=== PATIENT | female | born 1990 | race American Indian/Alaskan Native ===

== ENCOUNTER 2017-12-15 22:33 | Emergency (ER) | payer OTHER ==
[2017-12-16] MEDS ORDERED: Clindamycin HCl 150 MG Cap PO ONE (00:24)
[2017-12-16] MEDS ORDERED: Acetaminophen/HYDROcodone 325-10 MG Tab PO ONE (00:24)
--- NOTE | 2017-12-16 00:29 | EDM.PDOC ---
ED HPI GENERAL MEDICAL PROBLEM - General Chief Complaint: ENT Problem Stated Complaint: [id number] BAD TOOTHACHE Time Seen by Provider: 12/16/17 00:26 Source of Information: Reports: Patient History Limitations: Reports: No Limitations - History of Present Illness INITIAL COMMENTS - FREE TEXT/NARRATIVE: c/o worsening tooth ache past few days. 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 Psychiatric History: Reports: Addiction Hematologic History: Reports: Anemia, Blood Transfusion(s) Social & Family History - Family History Family Medical History: Noncontributory Cardiac: Reports: CAD Respiratory: Reports: Asthma, COPD GI: Reports: Cholelithiasis : Reports: Dialysis, Renal Disease/Insufficiency Musculoskeletal: Reports: Arthritis, Back pain, Chronic, Gout Neurological: Reports: CVA Psychiatric: Reports: Anxiety, Depression, Other (See Below) Endocrine/Metabolic: Reports: Diabetes, type II, Obesity/MBI 30+ - Tobacco Use Smoking Status *Q: Current Every Day Smoker Years of Tobacco use: 4 Packs/Tins Daily: 0.1 Used Tobacco, but Quit: No Second Hand Smoke Exposure: Yes - Caffeine Use Caffeine Use: Reports: Energy Drinks, Soda - Alcohol Use Days Per Week of Alcohol Use: 0 - Recreational Drug Use Recreational Drug Use: No Drug Use in Last 12 Months: Yes Recreational Drug Type: Reports: Methamphetamine Recreational Drug Use Frequency: Daily - Sexual History Sexual History: Reports: Sexually Active - Living Situation & Occupation Living situation: Reports: with Significant Other Occupation: Unemployed ED ROS ENT - Review of Systems Review Of Systems: ROS reveals no pertinent complaints other than HPI. ED EXAM, ENT - Physical Exam Exam: See Below Exam Limited By: No Limitations General Appearance: Alert, WD/WN, Mild Distress, Moderate Distress, Other ( crying) Mouth/Throat: Dental Abcess, Dental Pain, Dental Tenderness, Other (extensive dental decay & caries) Head: Atraumatic Neck: Non-Tender, Full Range of Motion Respiratory/Chest: No Respiratory Distress Cardiovascular: Regular Rate, Rhythm Neurological: Alert, Oriented, Normal Cognition, Normal Gait, No Motor/Sensory Deficits Psychiatric: Tearful Skin: Warm, Dry, Normal Color Lymphatic: No Adenopathy Course - Vital Signs Last Recorded V/S: Last Vital Signs Temp 36.6 C 12/15/17 22:56 Pulse 84 12/15/17 22:56 Resp 18 12/15/17 22:56 BP 142/60 H 12/15/17 22:56 Pulse Ox 100 12/15/17 22:56 - Orders/Labs/Meds Meds: Medications Discontinued Medications Generic Name Dose Route Start Last Admin Trade Name Freq PRN Reason Stop Dose Admin Hydrocodone Bitart/Acetaminophen 1 tab 12/16/17 00:24 [place] 325-10 Mg PO 12/16/17 00:25 ONETIME ONE Clindamycin HCl 150 mg 12/16/17 00:24 Cleocin PO 12/16/17 00:25 ONETIME ONE Departure - Departure Time of Disposition: 00:27 Disposition: Home, Self-Care 01 Condition: Good Clinical Impression: Dental abscess, Dental caries - Discharge Information Instructions: Dental Abscess, [id number] Additional Instructions: 1) see DENTIST TOMORROW rx given; clindamycin 150mg qid x 40 vicodin 5/325mg bid prn x 6
[2017-12-16 00:43] VITALS: BP 128/78
== END 2017-12-16 00:45 | disposition home or self-care (01) ==
LOC: DL.ED 22:33
DX: K04.7 Periapical abscess without sinus (principal); K02.9 Dental caries, unspecified; F17.210 Nicotine dependence, cigarettes, uncomplicated
CPT/HCPCS: 99283; A9270

== ENCOUNTER 2020-02-21 14:51 | Emergency (ER) | payer OTHER ==
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
[2020-02-21] MEDS ORDERED: Sodium Chloride 0.9% 10 ML Syringe FLUSH PRN (15:03)
[2020-02-21] MEDS ORDERED: Lactated Ringers 1,000 ML IV ONE (15:05)
[2020-02-21] MEDS ORDERED: fentaNYL 100 MCG/2 ML SDV IVPUSH ONE (15:05)
[2020-02-21] MEDS ORDERED: Ondansetron 4 MG/2 ML SDV IV ONE (15:05)
[2020-02-21 15:14] VITALS: BP 82/56; PULSE 98
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
[2020-02-21 15:26] LABS: ANION GAP 12.7 mEq/L (7-13); CHLORIDE,CL 105 mmol/L (98-107); SODIUM,NA 140 mmol/L (136-145)
[2020-02-21] MEDS: Diphtheria,Pertussis(Acell),Tetanus Vaccine 0.5 ML SDV IM ONE ×2 (15:26→15:29)
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
[2020-02-21 15:36] LABS: PTT,PARTIAL THROMBOPLSTIN TIME 22.5 SEC (22.0-34.0)
== END 2020-02-21 16:35 | disposition home or self-care (01) ==
LOC: DL.ED 14:51
DX: S06.0X0A Concussion without loss of consciousness, initial encounter (principal); S50.12XA Contusion of left forearm, initial encounter; S30.0XXA Contusion of lower back and pelvis, initial encounter; F15.10 Other stimulant abuse, uncomplicated; E66.9 Obesity, unspecified; K02.9 Dental caries, unspecified; E11.9 Type 2 diabetes mellitus without complications; Z86.73 Personal history of transient ischemic attack (TIA), and cerebral infarction without residual deficits; V87.8XXA Person injured in other specified noncollision transport accidents involving motor vehicle (traffic), initial encounter
CPT/HCPCS: 36415; 70450; 71045; 72125; 72170; 73080; 80053; 80305; 80307; 81001; 81025; 82150; 83690; 85025; 85610; 85730; 87086; 96361; 96374; 96375; 99284; J2405; J3010; J7120; 90715; 99283

== ENCOUNTER 2021-04-27 14:12 | Emergency (ER) | payer MEDICAID, OTHER ==
--- NOTE | 2021-04-27 14:34 | EDM.PDOC ---
ED HPI GENERAL MEDICAL PROBLEM - General Chief Complaint: ENT Problem Stated Complaint: EAR ACHE Time Seen by Provider: 04/27/21 14:33 Source of Information: Reports: Patient, Old Records, RN, RN Notes Reviewed History Limitations: Reports: No Limitations - History of Present Illness INITIAL COMMENTS - FREE TEXT/NARRATIVE: Pt presents to ER with c/o left ear pain x2 days, and pain in the left upper gums. Denies drainage, fever, chills, or cough. Pt states she is and due next month. She report active movement. Denies vaginal bleeding, leak or fluids, or discharge, or contractions. Onset: Gradual Duration: Getting Worse Location: Reports: Face Quality: Reports: Ache Severity: Moderate Improves with: Reports: None Worsens with: Reports: Eating Associated Symptoms: Reports: No Other Symptoms - Related Data Allergies Allergy/AdvReac Type Severity Reaction Status Date / Time No Known Allergies Allergy Verified 12/15/17 23:01 Home Meds: Home Meds . 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 Psychiatric History: Reports: Addiction Hematologic History: Reports: Anemia, Blood Transfusion(s) Social & Family History - Family History Family Medical History: No Pertinent Family History Cardiac: Reports: CAD Respiratory: Reports: Asthma, COPD GI: Reports: Cholelithiasis : Reports: Dialysis, Renal Disease/Insufficiency Musculoskeletal: Reports: Arthritis, Back pain, Chronic, Gout Neurological: Reports: CVA Psychiatric: Reports: Anxiety, Depression, Other (See Below) Endocrine/Metabolic: Reports: Diabetes, type II, Obesity/MBI 30+ - Caffeine Use Caffeine Use: Reports: Energy Drinks, Soda - Sexual History Sexual History: Reports: Sexually Active - Living Situation & Occupation Living situation: Reports: with Significant Other Occupation: Unemployed ED ROS ENT - Review of Systems Review Of Systems: Comprehensive ROS is negative, except as noted in HPI. ED EXAM, ENT - Physical Exam Exam: See Below Exam Limited By: No Limitations General Appearance: Alert, WD/WN, No Apparent Distress Eye Exam: Bilateral Eye: Normal Inspection Ears: TM Bulging (Left), TM Dullness (Left), TM Erythema (Left) Nose: Normal Inspection Mouth/Throat: Dental Abcess (Left upper molar region), Dental Pain Head: Atraumatic, Normocephalic Neck: Normal Inspection, Supple, Non-Tender, Full Range of Motion. No: Lymphadenopathy (L), Lymphadenopathy (R) Respiratory/Chest: No Respiratory Distress, Lungs Clear Cardiovascular: Regular Rate, Rhythm GI/Abdominal: Normal Bowel Sounds, Soft, Other (Gravid consist with 3rd Trim. with active motion) Back: Normal Inspection Neurological: Alert, Oriented, No Motor/Sensory Deficits Psychiatric: Normal Affect, Normal Mood Skin: Warm, Dry, Intact, Normal Color, No Rash Course - Orders/Labs/Meds Meds: Medications Discontinued Medications Generic Name Dose Route Start Last Admin Trade Name Freq PRN Reason Stop Dose Admin Clindamycin HCl 300 mg 04/27/21 14:44 Clindamycin Hcl 150 Mg Cap PO 04/27/21 14:45 ONETIME ONE Lidocaine HCl 15 ml 04/27/21 14:45 Lidocaine 2% Viscous Solution 15 Ml Cup PO 04/27/21 14:46 ONETIME ONE Departure - Departure Time of Disposition: 14:47 Disposition: Home, Self-Care 01 Condition: Good Clinical Impression: Dental abscess Otitis media Qualifiers: Otitis media type: suppurative Chronicity: acute Laterality: left Recurrence: non-recurrent Spontaneous tympanic membrane rupture: without spontaneous rupture Qualified Code(s): H66.002 - Acute suppurative otitis media without spontaneous rupture of ear drum, left ear - Discharge Information *PRESCRIPTION DRUG MONITORING PROGRAM REVIEWED*: Not Applicable *COPY OF PRESCRIPTION DRUG MONITORING REPORT IN PATIENT LUIS: Not Applicable Instructions: Dental Abscess, [id number]-[id number], Otitis Media, Adult, [id number] Forms: ED Department Discharge Additional Instructions: Rx: Clindamycin 300mg Rx: Viscous Lidocaine 2% Follow up in clinic in 3 to 5 days for recheck.
[2021-04-27] MEDS ORDERED: Clindamycin HCl 150 MG Cap PO ONE (14:44)
[2021-04-27] MEDS ORDERED: Lidocaine 2% Viscous Solution 15 ML Cup PO ONE (14:45)
== END 2021-04-27 15:10 | disposition home or self-care (01) ==
LOC: DL.ED 14:12
DX: O99.613 Diseases of the digestive system complicating pregnancy, third trimester (principal); O99.891 Other specified diseases and conditions complicating pregnancy; K04.7 Periapical abscess without sinus; H66.002 Acute suppurative otitis media without spontaneous rupture of ear drum, left ear; Z3A.00 Weeks of gestation of pregnancy not specified
CPT/HCPCS: 99282; 99283; A9270-GY

== ENCOUNTER 2021-05-31 12:09 | Inpatient (IN) | payer MEDICAID ==
[~2021-05-31 12:09] MED LIST: Ketorolac 30 MG/ML SDV IVPUSH ONE; Morphine PF 10 MG/10 ML SDV ONE; fentaNYL 100 MCG/2 ML SDV IV ONE
[2021-05-31] MEDS ORDERED: Famotidine 20 MG/2 ML SDV IVPUSH PRN (12:38)
[2021-05-31] MEDS ORDERED: Ondansetron 4 MG/2 ML SDV IVPUSH PRN (12:38)
[2021-05-31] MEDS ORDERED: Acetaminophen 325 MG Tab PO PRN (12:38)
[2021-05-31] MEDS ORDERED: Tranexamic Acid 1,000 MG in Sodium Chloride 0.9% 100 ML IV PRN (12:38)
[2021-05-31] MEDS ORDERED: Azithromycin 250 MG Tab PO ONE (13:00)
[2021-05-31 13:23] LABS: AMPHETAMINES,URINE NEGATIVE (NEGATIVE); BARBITURATES,URINE NEGATIVE (NEGATIVE); BENZODIAZEPINE,URINE NEGATIVE (NEGATIVE); MDMA (ECSTASY), URINE NEGATIVE (NEGATIVE); METHADONE,URINE NEGATIVE (NEGATIVE); METHAMPHETAMINES,URINE NEGATIVE (NEGATIVE); OPIATES,URINE NEGATIVE (NEGATIVE); OXYCODONE,URINE NEGATIVE (NEGATIVE); PHENCYCLIDINE,URINE NEGATIVE (NEGATIVE); TCA,URINE NEGATIVE (NEGATIVE)
[2021-06-01] MEDS ORDERED: ceFAZolin 2 GM in Premix Bag 1 BAG IV ONE (06:36)
[2021-06-01] MEDS ORDERED: Citric Acid/Sodium Citrate Solution 30 ML Cup PO ONE (06:36)
[2021-06-01] MEDS ORDERED: Measles, Mumps & Rubella Vaccine 0.5 ML SDV SUBCUT ONE (06:37)
[2021-06-01] MEDS ORDERED: ePHEDrine 50 MG/ML SDV IVPUSH PRN (06:37)
[2021-06-01] MEDS ORDERED: Misoprostol 400 MCG (4 X 100 MCG TAB) RECTAL PRN (06:37)
[2021-06-01] MEDS ORDERED: diphenhydrAMINE 50 MG/ML SDV IVPUSH PRN (06:37)
[2021-06-01] MEDS ORDERED: Acetaminophen/oxyCODONE 325-5 MG Tab PO PRN (06:37)
[2021-06-01] MEDS ORDERED: Carboprost Tromethamine 250 MCG/1 ML Amp IM PRN (06:37)
[2021-06-01] MEDS ORDERED: Methylergonovine 0.2 MG/1 ML Amp IM PRN (06:37)
[2021-06-01] MEDS ORDERED: Naloxone 2 MG/2 ML Syringe IVPUSH PRN (06:37)
[2021-06-01] MEDS ORDERED: Oxytocin/Normal Saline 30 UNIT/500 ML BAG IV SCH (06:45)
[2021-06-01] MEDS ORDERED: Ketorolac 30 MG/ML SDV IVPUSH SCH (06:45)
[2021-06-01] MEDS: Lactated Ringers 1,000 ML IV SCH ×4 (07:10→22:48)
[2021-06-01] MEDS ORDERED: Oxytocin/Normal Saline 60 UNIT/1,000 ML BAG ONE (07:22)
--- NOTE | 2021-06-01 10:53 | OBOUT ---
DATE: 06/01/2021 DATE AND TIME OF NST: 06/01/2021, 7:08 to 7:23. REASON FOR NST: 1. Intrauterine at 38 and 6/7 weeks by 26 and 5/7 weeks ultrasound. 2. Severe anemia, hemoglobin 7.8, now status post 2 units of packed red blood cells with hemoglobin coming up to 9.0 this morning. 3. High-risk . 4. High-risk social situation. 5. At-flight risk. 6. Abdominal pain, pubic bone region, suspect pubic symphysitis. 7. Positive urine drug screen for amphetamine on 05/18/2021, negative upon admission. 8. Positive chlamydia on 05/18/2021, treated yesterday when the patient presented for evaluation. 9. E. coli UTI in , treated. 10.Rubella nonimmune. 11.Hep C positive. 12.GBS negative. 13.Insufficient care. 14.History of x4, request repeat low transverse . 15.Positive COVID upon admission, asymptomatic. 16.G5, P4-0-0-4. NST INTERPRETATION: During this time period, heart tone baseline is approximately 130 and at least two 15 x 15 beats per minute accelerations making this strip reactive as well as reassuring. Tocometer reveals potential 1 contraction. ASSESSMENT: 1. Nonstress test, reactive and reassuring. 2. Tocometer with 1 contraction. PLAN: The patient was admitted last night, followed closely, received 2 units of packed red blood cells. Monitoring ensued. No concerns were noted. Positive COVID was noted yesterday upon admission and she is currently asymptomatic. Infection Control has been involved and we will continue following their recommendations. We will proceed to the OR as soon as crew is ready and available. This morning, Dr. Caro is available to help. Otherwise, we will continue to follow clinically and closely. Please see H and P which was done through YouTube on the day that she was admitted and printed and placed in the chart. [facility] /[id number]
--- NOTE | 2021-06-01 11:20 | OR ---
DATE: 06/01/2021 PREOPERATIVE DIAGNOSES: 1. Intrauterine at 38-6/7 weeks by 26-5/7-week ultrasound. 2. Severe anemia, hemoglobin 7.8 on 05/18/2021. Received 2 units of packed red blood cells on 05/31/2021 with hemoglobin coming up to 9.0 on 06/01/2021, date of service/surgery. 3. High-risk . 4. High-risk social situation. 5. At flight risk. 6. Abdominal pain in the pubic bone, suspect pubic symphysitis after monitoring. 7. Positive urine drug screen for amphetamine, 05/18/2021, negative upon admission. 8. Positive chlamydia 05/18/2021, treated 05/31/2021 when she presented to the hospital. 9. E coli urinary tract infection in the - treated. 10.Rubella nonimmune. 11.Hep C positive status. 12.Group B streptococcus negative. 13.Insufficient/late care. 14.History of x4, request repeat low transverse . 15.Positive COVID testing, asymptomatic on date of admission, 05/31/2021. 16.G5, P4-0-0-4. POSTOPERATIVE DIAGNOSES: 1. Intrauterine at 38-6/7 weeks by 26-5/7-week ultrasound - delivered. 2. Severe anemia, hemoglobin 7.8 on 05/18/2021. Received 2 units packed red blood cells on 05/31/2021 with hemoglobin coming up to 9.0 on 06/01/2021, date of service/surgery. 3. High-risk . 4. High-risk social situation. 5. At flight risk. 6. Abdominal pain in the pubic bone, suspect pubic symphysitis after monitoring. 7. Positive urine drug screen for amphetamine, 05/18/2021, negative upon admission. 8. Positive chlamydia 05/18/2021, treated 05/31/2021 when she presented to the hospital. 9. E coli urinary tract infection in the - treated. 10.Rubella nonimmune. 11.Hep C positive status. 12.Group B streptococcus negative. 13.Insufficient/late care. 14.History of x4, request repeat low transverse . 15.Positive COVID testing, asymptomatic on date of admission, 05/31/2021. 16.G5, P4-0-0-4. PROCEDURES PERFORMED: Nonstress test followed by repeat low transverse C- section on 06/01/2021. Procedure performed by Siva Trinidad MD. INVENTORY CONTROLLER: Douglas Caro MD and TERESA Mendoza. ANESTHESIA: Spinal. ESTIMATED BLOOD LOSS: 400 mL. IV FLUIDS: 1500 mL. URINE OUTPUT: 200 mL and clear. START: 8:22. UTERINE INCISION: 8:26. DELIVERY: 8:26. STOP: 8:45. FINDING: Male, score 8 and 9, weight pending. DESCRIPTION OF PROCEDURE IN DETAIL: After proper consent was obtained, the patient was brought to the operating room where spinal anesthetic was administered. Dudley was placed under preop under sterile condition. The abdomen was prepped and draped in normal sterile fashion with the patient placed in supine position with left lateral tilt. A skin incision was then made over the lower abdomen in transverse Pfannenstiel- type fashion. This was carried down the fascia and scored in the midline. Subcutaneous tissue raked by Hensley retraction and fascial incision was extended in transverse fashion using curved Stein's. Sana clamps x2 used to grasp the superior aspect of fascia and rectus muscles dissected from the fascia using sharp and blunt technique. In similar fashion, Sana clamps x2 used to grasp the inferior portion of the incision. Rectus and pyramidalis muscles were dissected from the fascia using sharp and blunt technique. Rectus muscles were then in the midline with blunt technique. Abdominal cavity was entered with blunt technique. Incision was extended superiorly and inferiorly with blunt technique. Dandy O large retractor was then introduced and used. Vesicouterine peritoneum was then identified, incised in transverse fashion with Metzenbaum scissors and bladder flap was made digitally. Curvilinear incision was made on the lower uterine segment and uterus was entered sharply. Clear fluid returned. Uterine incision was then extended in transverse fashion using blunt technique. vertex was then delivered through the incision, followed by rest of the infant without difficulty. Mouth and nares were suctioned. Cord was doubly clamped and cut, and infant was brought over to team for resuscitation. Approximately 10 mL of cord blood was obtained for labs. Placenta then delivered with gentle cord traction and fundal massage. Uterine cavity was then cleared of all blood clots and debris with lap sponge. Aceves clamps were used to grasp the uterine incision. This was closed in a running locked fashion and tied at lateral margins with 1-0 Vicryl. Left of midline an area of bleeding was noted. Etngur-lx-gplze stitch was applied over this area with 1-0 Vicryl and hemostasis reassured. First inspection of the uterine incision revealed hemostasis. Dandy O retractor was then removed and paracolic gutters were then cleared of all blood clots and debris with lap sponge. Anterior cul-de-sac was then irrigated copiously and all blood clots removed. Second and final inspection of the uterine incision and the anterior cul-de-sac revealed hemostasis. Rectus muscles were then reapproximated in the midline with pribkc-sb-kcifj stitch using 1-0 Vicryl. Subfascial tissues were found to be hemostatic. Fascia was closed in a running fashion and tied at lateral margins with 0 looped PDS. Subcutaneous tissue irrigated copiously. Hemostasis was reassured. Skin was reapproximated with medium yessy. Sterile Aquacel dressing applied. Uterine fundus firm and massage at the conclusion of the case, -2 below umbilicus. No immediate complications were noted. Sponge, lap and needle counts were correct. The patient received 2 g of Ancef preoperatively, Pitocin per protocol, and received Toradol at the conclusion of the case for pain control. Mother and are currently stable at the time of dictation. [facility] /[id number]
[2021-06-01] MEDS: Simethicone 80 MG Tab.Chew PO SCH ×4 (14:36→20:46)
[2021-06-01] MEDS: Ketorolac 30 MG/ML SDV IVPUSH SCH ×2 (14:37→20:46)
[2021-06-01] MEDS: Ferrous Sulfate 325 MG Tab PO SCH (14:40)
[2021-06-01] MEDS: Folic Acid 1 MG Tab PO SCH (14:40)
[2021-06-01] MEDS: Prenatal Multivitamin with Calcium/Folic Acid/Iron Tab PO SCH (14:40)
[2021-06-01] MEDS ORDERED: Oxytocin/Normal Saline 30 UNIT/500 ML BAG IV ONE (16:53)
[2021-06-01] MEDS: Docusate Sodium 100 MG Cap PO PRN (22:45)
[2021-06-02] MEDS: Ketorolac 30 MG/ML SDV IVPUSH SCH (02:46)
[2021-06-02] MEDS: Ferrous Sulfate 325 MG Tab PO SCH (08:31)
[2021-06-02] MEDS: Prenatal Multivitamin with Calcium/Folic Acid/Iron Tab PO SCH (08:31)
[2021-06-02] MEDS: Simethicone 80 MG Tab.Chew PO SCH ×4 (08:32→22:04)
[2021-06-02] MEDS: Docusate Sodium 100 MG Cap PO PRN ×2 (08:32→22:04)
[2021-06-02] MEDS: Acetaminophen/oxyCODONE 325-5 MG Tab PO PRN ×3 (08:34→22:05)
[2021-06-02] MEDS: Lactated Ringers 1,000 ML IV SCH (08:45)
[2021-06-02] MEDS: Folic Acid 1 MG Tab PO SCH (11:42)
--- NOTE | 2021-06-02 11:49 | PCM.SURGPN ---
- General Info Date of Service: 06/01/21 (POD/PPD # 1 S/P Repeat section) POD#: 1 Admission Diagnosis/Problem: section (Anemia) Functional Status: Reports: Pain Controlled, Tolerating Diet, Ambulating - Review of Systems General: Reports: No Symptoms HEENT: Reports: No Symptoms Pulmonary: Reports: No Symptoms Cardiovascular: Reports: No Symptoms Gastrointestinal: Reports: No Symptoms Genitourinary: Reports: No Symptoms Musculoskeletal: Reports: No Symptoms Skin: Reports: No Symptoms Neurological: Reports: No Symptoms Psychiatric: Reports: No Symptoms - Patient Data Vitals - Most Recent: Last Vital Signs Temp 98.9 F 06/02/21 08:00 Pulse 78 06/02/21 08:00 Resp 16 06/02/21 08:00 BP 108/64 06/02/21 08:00 Pulse Ox 99 06/01/21 09:23 Weight - Most Recent: 178 lb I&O - Last 24 Hours: Intake & Output 06/01/21 06/02/21 06/02/21 22:59 06:59 14:59 Intake Total 120 Output Total 625 285 Balance -505 -285 Lab Results Last 24 Hrs: Laboratory Results - last 24 hr 06/02/21 Range/Units 06:17 WBC 11.0 H (5.0-10.0) 10^3/uL RBC 3.83 L (4.2-5.4) 10^6/uL Hgb 7.5 L D (12.0-16.0) g/dL Hct 25.2 L (37.0-47.0) % MCV 65.8 L (80-100) fL MCH 19.6 L (27.0-34.0) pg MCHC 29.8 L (33.0-35.0) g/dL Plt Count 229 (150-450) 10^3/uL Med Orders - Current: Current Medications Acetaminophen (Acetaminophen 325 Mg Tab) 650 mg PO Q6H PRN PRN Reason: mild pain and fever Carboprost Tromethamine (Carboprost Tromethamine 250 Mcg/1 Ml Amp) 250 mcg IM ONETIME PRN PRN Reason: Bleeding Diphenhydramine HCl (Diphenhydramine 50 Mg/Ml Sdv) 25 mg IVPUSH Q6H PRN PRN Reason: Itching or Nausea Last Admin: 06/01/21 11:06 Dose: 25 mg Documented by: Docusate Sodium (Docusate Sodium 100 Mg Cap) 100 mg PO Q12H PRN PRN Reason: Constipation Last Admin: 06/02/21 08:32 Dose: 100 mg Documented by: Ephedrine Sulfate (Ephedrine 50 Mg/Ml Sdv) 5 mg IVPUSH SEECOMMENT PRN PRN Reason: Other Famotidine (Famotidine 20 Mg/2 Ml Sdv) 20 mg IVPUSH Q12H PRN PRN Reason: Heartburn Ferrous Sulfate (Ferrous Sulfate 325 Mg Tab) 325 mg PO DAILY [facility] Last Admin: 06/02/21 08:31 Dose: 325 mg Documented by: Folic Acid (Folic Acid 1 Mg Tab) 1 mg PO DAILY [facility] Last Admin: 06/02/21 11:42 Dose: 1 mg Documented by: Tranexamic Acid 1,000 mg/ (Sodium Chloride) 110 mls @ 660 mls/hr IV ONETIME PRN PRN Reason: Bleeding Oxytocin/Sodium Chloride (Pitocin In Ns 30 Unit/500 Ml) 30 unit in 500 mls @ 500 mls/hr IV TITRATE [facility]; Protocol Last Titration: 06/01/21 11:00 Dose: 0 ml/hr, 0 mls/hr Documented by: Lactated Ringer's (Ringers, Lactated) 1,000 mls @ 125 mls/hr IV ASDIRECTED [facility] Last Admin: 06/02/21 08:45 Dose: 125 mls/hr Documented by: Ibuprofen (Ibuprofen 800 Mg Tab) 800 mg PO Q8H PRN PRN Reason: Cramping Methylergonovine Maleate (Methylergonovine 0.2 Mg/1 Ml Amp) 0.2 mg IM ONETIME PRN PRN Reason: Excessive Vaginal Bleeding Misoprostol (Misoprostol 400 Mcg (4 X 100 Mcg Tab)) 800 mcg RECTAL ASDIRECTED PRN PRN Reason: Excessive bleeding Naloxone HCl (Naloxone 2 Mg/2 Ml Syringe) 0.1 mg IVPUSH SEECOMMENT PRN PRN Reason: Respiratory Depression Ondansetron HCl (Ondansetron 4 Mg/2 Ml Sdv) 4 mg IVPUSH Q4H PRN PRN Reason: Nausea/Vomiting Oxycodone/Acetaminophen (Acetaminophen/Oxycodone 325-5 Mg Tab) 1 tab PO Q4H PRN PRN Reason: Pain (moderate 4-6) Oxycodone/Acetaminophen (Acetaminophen/Oxycodone 325-5 Mg Tab) 2 tab PO Q4H PRN PRN Reason: Pain (moderate 4-6) Last Admin: 06/02/21 08:34 Dose: 2 tab Documented by: Prenat Multivit/Mckenzie/Iron/Folic Ac ( Multivitamin With Calcium/Folic Acid/Iron Tab) 1 each PO DAILY [facility] Last Admin: 06/02/21 08:31 Dose: 1 each Documented by: Simethicone (Simethicone 80 Mg Tab.Chew) 160 mg PO QID [facility] Last Admin: 06/02/21 08:32 Dose: 160 mg Documented by: Discontinued Medications Azithromycin (Azithromycin 250 Mg Tab) 1,000 mg PO ONETIME ONE Stop: 05/31/21 13:01 Last Admin: 05/31/21 13:34 Dose: 1,000 mg Documented by: Citric Acid/Sodium Citrate (Citric Acid/Sodium Citrate Solution 30 Ml Cup) 30 ml PO ONETIME ONE Stop: 06/01/21 06:37 Last Admin: 06/01/21 07:25 Dose: 30 ml Documented by: Fentanyl (Fentanyl 100 Mcg/2 Ml Sdv) 50 mcg IV .STK-MED ONE Stop: 05/31/21 08:02 Cefazolin Sodium/Dextrose 2 gm (/ Premix) 50 mls @ 100 mls/hr IV ONETIME ONE Stop: 06/01/21 07:05 Last Admin: 06/01/21 08:01 Dose: 100 mls/hr Documented by: Cefazolin Sodium/Dextrose (Ancef 2 Gm/50 Ml) Confirm Administered Dose 50 mls @ as directed .ROUTE .STK-MED ONE Stop: 06/01/21 07:23 Oxytocin/Sodium Chloride (Pitocin In Ns 30 Unit/500 Ml) Confirm Administered Dose 60 unit in 1,000 mls @ as directed .ROUTE .STK-MED ONE Stop: 06/01/21 07:23 Oxytocin/Sodium Chloride (Pitocin In Ns 30 Unit/500 Ml) 30 unit in 500 mls @ as directed IV .STK-MED ONE Stop: 06/01/21 16:54 Ketorolac Tromethamine (Ketorolac 30 Mg/Ml Sdv) 15 mg IVPUSH Q6H [facility] Stop: 06/01/21 18:46 Last Admin: 06/01/21 15:40 Dose: Not Given Documented by: Ketorolac Tromethamine (Ketorolac 30 Mg/Ml Sdv) 15 mg IVPUSH Q6H KIM Stop: 06/02/21 02:46 Last Admin: 06/02/21 02:46 Dose: 15 mg Documented by: Ketorolac Tromethamine (Ketorolac 30 Mg/Ml Sdv) 30 mg IVPUSH .STK-MED ONE Stop: 05/31/21 08:02 Measles/Mumps/Rubella Vaccine Live (Measles, Mumps & Rubella Vaccine 0.5 Ml Sdv) 0.5 ml SUBCUT .ONCE ONE Stop: 06/01/21 06:38 Morphine Sulfate (Morphine Pf 10 Mg/10 Ml Sdv) 0.2 mg .XX .STK-MED ONE Stop: 05/31/21 08:02 - Exam Wound/Incisions: Healing Well, Dressing Dry and Intact, No Drainage General: Alert, Oriented, Cooperative, No Acute Distress HEENT: Pupils Equal, Pupils Reactive, EOMI, Mucous Membr. Moist/Allyn Neck: Supple Lungs: Clear to Auscultation, Normal Respiratory Effort Cardiovascular: Regular Rate, Regular Rhythm GI/Abdominal Exam: Normal Bowel Sounds, Soft, Non-Tender, No Distention Extremities: Normal Inspection, Normal Range of Motion, Non-Tender Skin: Warm Neurological: No New Focal Deficit, Normal Speech Psy/Mental Status: Alert, Normal Affect, Normal Mood Sepsis Event Note - Evaluation Sepsis Screening Result: No Definite Risk - Focused Exam Vital Signs: Vital Signs Temp Pulse Pulse Resp BP 06/02/21 08:00 98.9 F 78 16 108/64 06/02/21 05:30 98.7 F 80 16 114/70 06/02/21 00:30 98.8 F 83 16 105/65 - Problem List Review Problem List Initiated/Reviewed/Updated: Yes - My Orders Last 24 Hours: Active Orders 24 hr Category Date Time Status Ibuprofen [Motrin] Med 06/02/21 00:46 Active 800 mg PO Q8H PRN Medication Orders Acetaminophen (Acetaminophen 325 Mg Tab) 650 mg PO Q6H PRN PRN Reason: mild pain and fever Carboprost Tromethamine (Carboprost Tromethamine 250 Mcg/1 Ml Amp) 250 mcg IM ONETIME PRN PRN Reason: Bleeding Diphenhydramine HCl (Diphenhydramine 50 Mg/Ml Sdv) 25 mg IVPUSH Q6H PRN PRN Reason: Itching or Nausea Last Admin: 06/01/21 11:06 Dose: 25 mg Documented by: DENNIS Docusate Sodium (Docusate Sodium 100 Mg Cap) 100 mg PO Q12H PRN PRN Reason: Constipation Last Admin: 06/02/21 08:32 Dose: 100 mg Documented by: Admin: 06/01/21 22:45 Dose: 100 mg Documented by: CYRIL Ephedrine Sulfate (Ephedrine 50 Mg/Ml Sdv) 5 mg IVPUSH SEECOMMENT PRN PRN Reason: Other Famotidine (Famotidine 20 Mg/2 Ml Sdv) 20 mg IVPUSH Q12H PRN PRN Reason: Heartburn Ferrous Sulfate (Ferrous Sulfate 325 Mg Tab) 325 mg PO DAILY [facility] Last Admin: 06/02/21 08:31 Dose: 325 mg Documented by: Admin: 06/01/21 14:40 Dose: Not Given Documented by: DENNIS Folic Acid (Folic Acid 1 Mg Tab) 1 mg PO DAILY [facility] Last Admin: 06/02/21 11:42 Dose: 1 mg Documented by: Admin: 06/01/21 14:40 Dose: Not Given Documented by: DENNIS Tranexamic Acid 1,000 mg/ (Sodium Chloride) 110 mls @ 660 mls/hr IV ONETIME PRN PRN Reason: Bleeding Oxytocin/Sodium Chloride (Pitocin In Ns 30 Unit/500 Ml) 30 unit in 500 mls @ 500 mls/hr IV TITRATE [facility]; Protocol Last Titration: 06/01/21 11:00 Dose: 0 ml/hr, 0 mls/hr Documented by: Titration: 06/01/21 09:55 Dose: 50 ml/hr, 50 mls/hr Documented by: Admin: 06/01/21 08:55 Dose: 125 ml/hr, 125 mls/hr Documented by: AUBREY Lactated Ringer's (Ringers, Lactated) 1,000 mls @ 125 mls/hr IV ASDIRECTED [facility] Last Admin: 06/02/21 08:45 Dose: 125 mls/hr Documented by: Infusion: 06/02/21 08:00 Dose: 125 mls/hr Documented by: Admin: 06/01/21 22:48 Dose: 125 mls/hr Documented by: Infusion: 06/01/21 22:48 Dose: 125 mls/hr Documented by: Admin: 06/01/21 14:41 Dose: 125 mls/hr Documented by: Infusion: 06/01/21 14:41 Dose: 125 mls/hr Documented by: Admin: 06/01/21 07:33 Dose: 125 mls/hr Documented by: Infusion: 06/01/21 07:33 Dose: 125 mls/hr Documented by: Admin: 06/01/21 07:10 Dose: 125 mls/hr Documented by: DENNIS Ibuprofen (Ibuprofen 800 Mg Tab) 800 mg PO Q8H PRN PRN Reason: Cramping Methylergonovine Maleate (Methylergonovine 0.2 Mg/1 Ml Amp) 0.2 mg IM ONETIME PRN PRN Reason: Excessive Vaginal Bleeding Misoprostol (Misoprostol 400 Mcg (4 X 100 Mcg Tab)) 800 mcg RECTAL ASDIRECTED PRN PRN Reason: Excessive bleeding Naloxone HCl (Naloxone 2 Mg/2 Ml Syringe) 0.1 mg IVPUSH SEECOMMENT PRN PRN Reason: Respiratory Depression Ondansetron HCl (Ondansetron 4 Mg/2 Ml Sdv) 4 mg IVPUSH Q4H PRN PRN Reason: Nausea/Vomiting Oxycodone/Acetaminophen (Acetaminophen/Oxycodone 325-5 Mg Tab) 1 tab PO Q4H PRN PRN Reason: Pain (moderate 4-6) Oxycodone/Acetaminophen (Acetaminophen/Oxycodone 325-5 Mg Tab) 2 tab PO Q4H PRN PRN Reason: Pain (moderate 4-6) Last Admin: 06/02/21 08:34 Dose: 2 tab Documented by: ANN Prenat Multivit/[employer] Associate Professor/Iron/Folic Ac ( Multivitamin With Calcium/Folic Acid/Iron Tab) 1 each PO DAILY [facility] Last Admin: 06/02/21 08:31 Dose: 1 each Documented by: Admin: 06/01/21 14:40 Dose: Not Given Documented by: DENNIS Simethicone (Simethicone 80 Mg Tab.Chew) 160 mg PO QID [facility] Last Admin: 06/02/21 08:32 Dose: 160 mg Documented by: Admin: 06/01/21 20:46 Dose: 160 mg Documented by: Admin: 06/01/21 18:15 Dose: 160 mg Documented by: Admin: 06/01/21 14:40 Dose: Not Given Documented by: Admin: 06/01/21 14:36 Dose: 160 mg Documented by: DENNIS - Assessment Assessment (Free Text/Narrative):: PPD/POD # 1 S/P Repeat section Hx chronic anemia of transfused with 2 units of PRBC's before surgery. + Covid Asymptomatic - Plan Plan (Free Text/Narrative):: Continue present care PNV and Iron daily Increase ambulation today
[2021-06-02] MEDS: Ibuprofen 800 MG Tab PO PRN ×2 (15:12→22:04)
[2021-06-03] MEDS: Acetaminophen/oxyCODONE 325-5 MG Tab PO PRN ×3 (02:24→13:25)
[2021-06-03] MEDS: Ibuprofen 800 MG Tab PO PRN (06:24)
[2021-06-03] MEDS: Prenatal Multivitamin with Calcium/Folic Acid/Iron Tab PO SCH (08:36)
[2021-06-03] MEDS: Docusate Sodium 100 MG Cap PO PRN (08:36)
[2021-06-03] MEDS: Simethicone 80 MG Tab.Chew PO SCH ×2 (08:37→13:25)
[2021-06-03] MEDS: Ferrous Sulfate 325 MG Tab PO SCH (08:37)
[2021-06-03] MEDS: Folic Acid 1 MG Tab PO SCH (08:37)
--- NOTE | 2021-06-03 10:29 | PCM.SURGPN ---
- General Info Date of Service: 06/03/21 (PPD/POD # 2) POD#: 2 Post-Op Diagnosis: Chronic Anemia of . Previous cesraean section Functional Status: Reports: Pain Controlled, Tolerating Diet, Ambulating, Urinating - Review of Systems General: Reports: No Symptoms HEENT: Reports: No Symptoms Pulmonary: Reports: No Symptoms Cardiovascular: Reports: No Symptoms Gastrointestinal: Reports: No Symptoms Genitourinary: Reports: No Symptoms Musculoskeletal: Reports: No Symptoms Skin: Reports: No Symptoms Neurological: Reports: No Symptoms Psychiatric: Reports: No Symptoms - Patient Data Vitals - Most Recent: Last Vital Signs Temp 98.6 F 06/03/21 08:00 Pulse 75 06/03/21 08:00 Resp 16 06/03/21 08:00 BP 111/68 06/03/21 08:00 Pulse Ox 99 06/01/21 09:23 Weight - Most Recent: 178 lb I&O - Last 24 Hours: Intake & Output 06/02/21 06/03/21 06/03/21 22:59 06:59 14:59 Output Total 700 Balance -700 Med Orders - Current: Current Medications Acetaminophen (Acetaminophen 325 Mg Tab) 650 mg PO Q6H PRN PRN Reason: mild pain and fever Carboprost Tromethamine (Carboprost Tromethamine 250 Mcg/1 Ml Amp) 250 mcg IM ONETIME PRN PRN Reason: Bleeding Diphenhydramine HCl (Diphenhydramine 50 Mg/Ml Sdv) 25 mg IVPUSH Q6H PRN PRN Reason: Itching or Nausea Last Admin: 06/01/21 11:06 Dose: 25 mg Documented by: Docusate Sodium (Docusate Sodium 100 Mg Cap) 100 mg PO Q12H PRN PRN Reason: Constipation Last Admin: 06/03/21 08:36 Dose: 100 mg Documented by: Ephedrine Sulfate (Ephedrine 50 Mg/Ml Sdv) 5 mg IVPUSH SEECOMMENT PRN PRN Reason: Other Famotidine (Famotidine 20 Mg/2 Ml Sdv) 20 mg IVPUSH Q12H PRN PRN Reason: Heartburn Ferrous Sulfate (Ferrous Sulfate 325 Mg Tab) 325 mg PO DAILY KIM Last Admin: 06/03/21 08:37 Dose: 325 mg Documented by: Folic Acid (Folic Acid 1 Mg Tab) 1 mg PO DAILY [facility] Last Admin: 06/03/21 08:37 Dose: 1 mg Documented by: Tranexamic Acid 1,000 mg/ (Sodium Chloride) 110 mls @ 660 mls/hr IV ONETIME PRN PRN Reason: Bleeding Oxytocin/Sodium Chloride (Pitocin In Ns 30 Unit/500 Ml) 30 unit in 500 mls @ 500 mls/hr IV TITRATE KIM; Protocol Last Titration: 06/01/21 11:00 Dose: 0 ml/hr, 0 mls/hr Documented by: Lactated Ringer's (Ringers, Lactated) 1,000 mls @ 125 mls/hr IV ASDIRECTED KIM Last Admin: 06/02/21 08:45 Dose: 125 mls/hr Documented by: Ibuprofen (Ibuprofen 800 Mg Tab) 800 mg PO Q8H PRN PRN Reason: Cramping Last Admin: 06/03/21 06:24 Dose: 800 mg Documented by: Measles/Mumps/Rubella Vaccine Live (Measles, Mumps & Rubella Vaccine 0.5 Ml Sdv) 0.5 ml SUBCUT .ONCE ONE Stop: 06/03/21 12:01 Methylergonovine Maleate (Methylergonovine 0.2 Mg/1 Ml Amp) 0.2 mg IM ONETIME PRN PRN Reason: Excessive Vaginal Bleeding Misoprostol (Misoprostol 400 Mcg (4 X 100 Mcg Tab)) 800 mcg RECTAL ASDIRECTED PRN PRN Reason: Excessive bleeding Naloxone HCl (Naloxone 2 Mg/2 Ml Syringe) 0.1 mg IVPUSH SEECOMMENT PRN PRN Reason: Respiratory Depression Ondansetron HCl (Ondansetron 4 Mg/2 Ml Sdv) 4 mg IVPUSH Q4H PRN PRN Reason: Nausea/Vomiting Oxycodone/Acetaminophen (Acetaminophen/Oxycodone 325-5 Mg Tab) 1 tab PO Q4H PRN PRN Reason: Pain (moderate 4-6) Oxycodone/Acetaminophen (Acetaminophen/Oxycodone 325-5 Mg Tab) 2 tab PO Q4H PRN PRN Reason: Pain (moderate 4-6) Last Admin: 06/03/21 06:25 Dose: 2 tab Documented by: Prenat Multivit/Nadine/Iron/Folic Ac ( Multivitamin With Calcium/Folic Acid/Iron Tab) 1 each PO DAILY [facility] Last Admin: 06/03/21 08:36 Dose: 1 each Documented by: Simethicone (Simethicone 80 Mg Tab.Chew) 160 mg PO QID [facility] Last Admin: 06/03/21 08:37 Dose: 160 mg Documented by: Discontinued Medications Azithromycin (Azithromycin 250 Mg Tab) 1,000 mg PO ONETIME ONE Stop: 05/31/21 13:01 Last Admin: 05/31/21 13:34 Dose: 1,000 mg Documented by: Citric Acid/Sodium Citrate (Citric Acid/Sodium Citrate Solution 30 Ml Cup) 30 ml PO ONETIME ONE Stop: 06/01/21 06:37 Last Admin: 06/01/21 07:25 Dose: 30 ml Documented by: Fentanyl (Fentanyl 100 Mcg/2 Ml Sdv) 50 mcg IV .STK-MED ONE Stop: 05/31/21 08:02 Cefazolin Sodium/Dextrose 2 gm (/ Premix) 50 mls @ 100 mls/hr IV ONETIME ONE Stop: 06/01/21 07:05 Last Admin: 06/01/21 08:01 Dose: 100 mls/hr Documented by: Cefazolin Sodium/Dextrose (Ancef 2 Gm/50 Ml) Confirm Administered Dose 50 mls @ as directed .ROUTE .STK-MED ONE Stop: 06/01/21 07:23 Oxytocin/Sodium Chloride (Pitocin In Ns 30 Unit/500 Ml) Confirm Administered Dose 60 unit in 1,000 mls @ as directed .ROUTE .STK-MED ONE Stop: 06/01/21 07:23 Oxytocin/Sodium Chloride (Pitocin In Ns 30 Unit/500 Ml) 30 unit in 500 mls @ as directed IV .STK-MED ONE Stop: 06/01/21 16:54 Ketorolac Tromethamine (Ketorolac 30 Mg/Ml Sdv) 15 mg IVPUSH Q6H [facility] Stop: 06/01/21 18:46 Last Admin: 06/01/21 15:40 Dose: Not Given Documented by: Ketorolac Tromethamine (Ketorolac 30 Mg/Ml Sdv) 15 mg IVPUSH Q6H [facility] Stop: 06/02/21 02:46 Last Admin: 06/02/21 02:46 Dose: 15 mg Documented by: Ketorolac Tromethamine (Ketorolac 30 Mg/Ml Sdv) 30 mg IVPUSH .STK-MED ONE Stop: 05/31/21 08:02 Measles/Mumps/Rubella Vaccine Live (Measles, Mumps & Rubella Vaccine 0.5 Ml Sdv) 0.5 ml SUBCUT .ONCE ONE Stop: 06/01/21 06:38 Morphine Sulfate (Morphine Pf 10 Mg/10 Ml Sdv) 0.2 mg .XX .STK-MED ONE Stop: 05/31/21 08:02 - Exam Wound/Incisions: Healing Well, Dressing Dry and Intact, No Drainage General: Alert, Oriented, Cooperative, No Acute Distress HEENT: Pupils Equal, Pupils Reactive, EOMI, Mucous Membr. Moist/[place] Neck: Supple Lungs: Clear to Auscultation, Normal Respiratory Effort Cardiovascular: Regular Rate, Regular Rhythm GI/Abdominal Exam: Normal Bowel Sounds, Soft, Non-Tender, No Distention Extremities: Normal Inspection, Normal Range of Motion, Non-Tender, No Pedal Edema Skin: Warm, Dry, Intact Neurological: No New Focal Deficit, Normal Gait, Normal Speech Psy/Mental Status: Alert, Normal Affect, Normal Mood Sepsis Event Note - Evaluation Sepsis Screening Result: No Definite Risk - Focused Exam Vital Signs: Vital Signs Temp Pulse Resp BP 06/03/21 08:00 98.6 F 75 16 111/68 06/03/21 02:15 99.0 F 84 16 103/60 - Problem List Review Problem List Initiated/Reviewed/Updated: Yes - My Orders Last 24 Hours: Active Orders 24 hr Category Date Time Status Measles, Mumps & Rubella [M-M-R II Vaccine] Med 06/03/21 12:00 Once 0.5 ml SUBCUT .ONCE ONE Medication Orders Acetaminophen (Acetaminophen 325 Mg Tab) 650 mg PO Q6H PRN PRN Reason: mild pain and fever Carboprost Tromethamine (Carboprost Tromethamine 250 Mcg/1 Ml Amp) 250 mcg IM ONETIME PRN PRN Reason: Bleeding Diphenhydramine HCl (Diphenhydramine 50 Mg/Ml Sdv) 25 mg IVPUSH Q6H PRN PRN Reason: Itching or Nausea Last Admin: 06/01/21 11:06 Dose: 25 mg Documented by: DENNIS Docusate Sodium (Docusate Sodium 100 Mg Cap) 100 mg PO Q12H PRN PRN Reason: Constipation Last Admin: 06/03/21 08:36 Dose: 100 mg Documented by: Admin: 06/02/21 22:04 Dose: 100 mg Documented by: Admin: 06/02/21 08:32 Dose: 100 mg Documented by: Admin: 06/01/21 22:45 Dose: 100 mg Documented by: CYRIL Ephedrine Sulfate (Ephedrine 50 Mg/Ml Sdv) 5 mg IVPUSH SEECOMMENT PRN PRN Reason: Other Famotidine (Famotidine 20 Mg/2 Ml Sdv) 20 mg IVPUSH Q12H PRN PRN Reason: Heartburn Ferrous Sulfate (Ferrous Sulfate 325 Mg Tab) 325 mg PO DAILY [facility] Last Admin: 06/03/21 08:37 Dose: 325 mg Documented by: Admin: 06/02/21 08:31 Dose: 325 mg Documented by: Admin: 06/01/21 14:40 Dose: Not Given Documented by: DENNIS Folic Acid (Folic Acid 1 Mg Tab) 1 mg PO DAILY [facility] Last Admin: 06/03/21 08:37 Dose: 1 mg Documented by: Admin: 06/02/21 11:42 Dose: 1 mg Documented by: Admin: 06/01/21 14:40 Dose: Not Given Documented by: DENNIS Tranexamic Acid 1,000 mg/ (Sodium Chloride) 110 mls @ 660 mls/hr IV ONETIME PRN PRN Reason: Bleeding Oxytocin/Sodium Chloride (Pitocin In Ns 30 Unit/500 Ml) 30 unit in 500 mls @ 500 mls/hr IV TITRATE KIM; Protocol Last Titration: 06/01/21 11:00 Dose: 0 ml/hr, 0 mls/hr Documented by: Titration: 06/01/21 09:55 Dose: 50 ml/hr, 50 mls/hr Documented by: Admin: 06/01/21 08:55 Dose: 125 ml/hr, 125 mls/hr Documented by: AUBREY Lactated Ringer's (Ringers, Lactated) 1,000 mls @ 125 mls/hr IV ASDIRECTED [facility] Last Admin: 06/02/21 08:45 Dose: 125 mls/hr Documented by: Infusion: 06/02/21 08:00 Dose: 125 mls/hr Documented by: Admin: 06/01/21 22:48 Dose: 125 mls/hr Documented by: Infusion: 06/01/21 22:48 Dose: 125 mls/hr Documented by: Admin: 06/01/21 14:41 Dose: 125 mls/hr Documented by: Infusion: 06/01/21 14:41 Dose: 125 mls/hr Documented by: Admin: 06/01/21 07:33 Dose: 125 mls/hr Documented by: Infusion: 06/01/21 07:33 Dose: 125 mls/hr Documented by: Admin: 06/01/21 07:10 Dose: 125 mls/hr Documented by: DENNIS Ibuprofen (Ibuprofen 800 Mg Tab) 800 mg PO Q8H PRN PRN Reason: Cramping Last Admin: 06/03/21 06:24 Dose: 800 mg Documented by: Admin: 06/02/21 22:04 Dose: 800 mg Documented by: Admin: 06/02/21 15:12 Dose: 800 mg Documented by: ANN Measles/Mumps/Rubella Vaccine Live (Measles, Mumps & Rubella Vaccine 0.5 Ml Sdv) 0.5 ml SUBCUT .ONCE ONE Stop: 06/03/21 12:01 Methylergonovine Maleate (Methylergonovine 0.2 Mg/1 Ml Amp) 0.2 mg IM ONETIME PRN PRN Reason: Excessive Vaginal Bleeding Misoprostol (Misoprostol 400 Mcg (4 X 100 Mcg Tab)) 800 mcg RECTAL ASDIRECTED PRN PRN Reason: Excessive bleeding Naloxone HCl (Naloxone 2 Mg/2 Ml Syringe) 0.1 mg IVPUSH SEECOMMENT PRN PRN Reason: Respiratory Depression Ondansetron HCl (Ondansetron 4 Mg/2 Ml Sdv) 4 mg IVPUSH Q4H PRN PRN Reason: Nausea/Vomiting Oxycodone/Acetaminophen (Acetaminophen/Oxycodone 325-5 Mg Tab) 1 tab PO Q4H PRN PRN Reason: Pain (moderate 4-6) Oxycodone/Acetaminophen (Acetaminophen/Oxycodone 325-5 Mg Tab) 2 tab PO Q4H PRN PRN Reason: Pain (moderate 4-6) [facility] Admin: 06/03/21 06:25 Dose: 2 tab Documented by: Admin: 06/03/21 02:24 Dose: 2 tab Documented by: Admin: 06/02/21 22:05 Dose: 2 tab Documented by: Admin: 06/02/21 16:12 Dose: 2 tab Documented by: Admin: 06/02/21 08:34 Dose: 2 tab Documented by: ANN Prenat Multivit/Nadine/Iron/Folic Ac ( Multivitamin With Calcium/Folic Acid/Iron Tab) 1 each PO DAILY [facility] Admin: 06/03/21 08:36 Dose: 1 each Documented by: Admin: 06/02/21 08:31 Dose: 1 each Documented by: Admin: 06/01/21 14:40 Dose: Not Given Documented by: DENNIS Simethicone (Simethicone 80 Mg Tab.Chew) 160 mg PO QID [facility] Admin: 06/03/21 08:37 Dose: 160 mg Documented by: Admin: 06/02/21 22:04 Dose: 160 mg Documented by: Admin: 06/02/21 17:37 Dose: 160 mg Documented by: Admin: 06/02/21 15:12 Dose: 160 mg Documented by: Admin: 06/02/21 08:32 Dose: 160 mg Documented by: Admin: 06/01/21 20:46 Dose: 160 mg Documented by: Admin: 06/01/21 18:15 Dose: 160 mg Documented by: Admin: 06/01/21 14:40 Dose: Not Given Documented by: Admin: 06/01/21 14:36 Dose: 160 mg Documented by: DENNIS - Assessment Assessment (Free Text/Narrative):: PPD/POD # 2 S/P Repeat section Chronic anemia of - Plan Plan (Free Text/Narrative):: Discharge to home Follow-up with Dr. Trinidad next week for wound check Ibuprofen/Percocet for pain control. PNV and Iron daily.
[2021-06-03] MEDS ORDERED: Measles, Mumps & Rubella Vaccine 0.5 ML SDV SUBCUT ONE (12:00)
[2021-06-03 13:23] VITALS: BP 140/86; PULSE 79
--- NOTE | 2021-06-04 09:34 | DISCH ---
INDICATION FOR ADMISSION: Ms. Aldana is a 30-year-old 5, para 4-0-0- 4 female at 38-6/7 weeks' gestation, who reported to the [facility] in [place] for evaluation. She was noted to have severe anemia. Hemoglobin of 7.8. She received 2 units of packed red blood cells the night before surgery, which brought her hemoglobin up to 9.0. She then underwent a repeat low transverse section via Pfannenstiel skin incision, which she tolerated quite well, and she had delivery of a viable male with score of 8 at one minute, 9 at five minutes. She tolerated the procedure well. She went from the operating room to recovery and then to the OB floor. She tolerated the rest of her hospital stay quite well. She was afebrile. Vital signs were stable. She tolerated her diet well. Ambulated quite well. She had no dizziness or lightheadedness. Her incision did quite well with no erythema or drainage noted. She was ready for discharge on postop day #2. She never did have any symptoms of COVID, just a positive test. LABORATORY AND DIAGNOSTIC STUDIES: 06/01/2021; WBC 7.0, hemoglobin 9.0, hematocrit 29.3, platelet count 263,000. 06/02/2021; WBC 11.0, hemoglobin 7.5, hematocrit 25.2, platelet count 229,000. Urine drug screen was negative. COVID- 19 test was positive. DISCHARGE INSTRUCTIONS: 1. Discharge to home. She is going to a hotel for the next 2 weeks to be quarantined. 2. Ibuprofen 800 mg 1 tablet t.i.d. p.r.n. for pain. 3. Percocet 5/325 mg 1 tablet t.i.d. p.r.n. for pain. 4. vitamins and iron to take daily. 5. No douching, tampons, or intercourse for 6 weeks. 6. Discharge instructions including activity, followup, medications, diet, and wound care were discussed with the patient. She understands these and is willing to comply with these. 7. Follow up with Dr. Trinidad for her wound check and staple removal. DISCHARGE DIAGNOSES: 1. 38-6/7 weeks' intrauterine . 2. Previous section x4. 3. Severe anemia with 2 units of packed red blood cells transfused before surgery. 4. High-risk . 5. High-risk social situation. 6. At slight risk. 7. Abdominal pain/pelvic pain. 8. Coronavirus disease 2019 test positive. 9. History of urinary tract infection early in the , treated. 10.Positive chlamydia early in the , treated. 11.Urine drug screen of the positive for methamphetamine, negative on admission. 12.Rubella nonimmune. 13.Hepatitis C positive. 14.Late insufficient care. 15.Repeat low transverse section via Pfannenstiel skin incision with delivery of a viable male weighing 7 pounds 1 ounce. score 8 at one minute, 9 at five minutes. 16.Spinal anesthesia with Duramorph. [facility] /[id number]
== END 2021-06-03 13:55 | disposition home or self-care (01) | DRG 786 ==
LOC: DL.OB 12:09 → EEVIPCON 12:09 → DL.OB 14:21 → OBSVTOIN 06-01 08:26
PROVIDERS: ADMIT Family Medicine; ATTEND Family Medicine
PROC: 30233N1 Transfusion of Nonautologous Red Blood Cells into Peripheral Vein, Percutaneous Approach (ICD-10-PCS; 2021-05-31)
PROC: 10D00Z1 Extraction of Products of Conception, Low, Open Approach (ICD-10-PCS; principal; 2021-06-01)
DX: O99.02 Anemia complicating childbirth (principal); U07.1 COVID-19; O98.52 Other viral diseases complicating childbirth; O34.211 Maternal care for low transverse scar from previous cesarean delivery; D64.9 Anemia, unspecified; Z37.0 Single live birth; Z3A.38 38 weeks gestation of pregnancy
CPT/HCPCS: 01961; 36415; 36430; 51702; 80305-QW; 85027; 86850; 86900; 86901; 86920; 86922; 90471; 90707; A9270-GY; J0690; J1200; J1885; J2270; J2590; J3010; J7120; P9016; U0002

== ENCOUNTER 2022-02-18 22:37 | Emergency (ER) | payer MEDICAID ==
[2022-02-18 23:47] LABS: ANION GAP 12.4 mEq/L (7-13); CHLORIDE,CL 102 mmol/L (98-107); SODIUM,NA 135 mmol/L (136-145)
[2022-02-18 23:49] VITALS: BP 120/91; PULSE 92
[2022-02-18 23:52] LABS: ESTIMATED GFR > 60
[2022-02-19] MEDS ORDERED: cefTRIAXone 1 GM, Lidocaine 1% 2.1 ML IM ONE ×2
== END 2022-02-19 00:35 | disposition home or self-care (01) ==
LOC: DL.ED 22:37
DX: L03.116 Cellulitis of left lower limb (principal); L03.115 Cellulitis of right lower limb; F17.210 Nicotine dependence, cigarettes, uncomplicated
CPT/HCPCS: 36415; 80053; 83605; 83735; 85025; 87070; 87077; 87186; 87205; 96372; 99283; J0696

== ENCOUNTER 2022-09-23 11:18 | Emergency (ER) | payer MEDICAID ==
[2022-09-23 11:59] VITALS: BP 164/111; PULSE 98
[2022-09-23] MEDS ORDERED: Piperacillin/Tazobactam 4.5 GM in Sodium Chloride 0.9% 100 ML IV ONE (12:30)
[2022-09-23] MEDS ORDERED: Sodium Chloride 0.9% 10 ML Syringe FLUSH PRN (12:30)
[2022-09-23] MEDS ORDERED: Dexamethasone 4 MG/ML SDV IVPUSH ONE (12:31)
[2022-09-23] MEDS ORDERED: Sodium Chloride 0.9% 1,000 ML IV ONE (12:31)
== END 2022-09-23 14:09 | disposition home or self-care (01) ==
LOC: DL.ED 11:18
DX: K04.7 Periapical abscess without sinus (principal); K02.9 Dental caries, unspecified; Z72.0 Tobacco use
CPT/HCPCS: 36415; 85025; 86140; 96365; 96375; 99283; J1100; J2543; J3490; J7030

== ENCOUNTER 2023-05-02 21:52 | Emergency (ER) | payer MEDICAID ==
[2023-05-02 22:59] LABS: BASOPHILS PERCENT AUTO 0.5 % (0.0-1.0); EOSINOPHILS PERCENT AUTO 1.3 % (1.0-3.0); HEMATOCRIT 27.2 % (37.0-47.0); HEMOGLOBIN 7.5 g/dL (12.0-16.0); LYMPHOCYTES PERCENT AUTO 19.3 % (20.5-50.1); MEAN CORPUSCULAR HEMOGLOBIN 16.3 pg (27.0-34.0); MEAN CORPUSCULAR HGB CONC 27.6 g/dL (33.0-35.0); MEAN CORPUSCULAR VOLUME 59.1 fL (80-100); MONOCYTES PERCENT AUTO 17.5 % (2-8); NEUTROPHILS PERCENT AUTO 61.4 % (42.2-75.2); PLATELET COUNT,PLT 308 10^3/uL (150-450)
[2023-05-02 23:05] VITALS: BP 119/53; PULSE 88
[2023-05-02 23:21] LABS: LACTIC ACID 1.6 mmol/L (0.4-2.0)
[2023-05-02 23:23] LABS: HCG QUALITATIVE,SERUM NEGATIVE (NEGATIVE)
[2023-05-02 23:27] LABS: ALANINE AMINOTRANSFERASE,ALT 48 U/L (14-59); ALBUMIN 3.2 g/dL (3.4-5.0); ALKALINE PHOSPHATASE 139 U/L (46-116); ANION GAP 13.5 mEq/L (7-13); ASPARTATE AMNIOTRANSFERASE,AST 44 U/L (15-37); BILIRUBIN TOTAL 0.3 mg/dL (0.2-1.0); BLOOD UREA NITROGEN,BUN 9 mg/dL (7-18); BUN/CREATININE RATIO 12.2 (No establ ref range); C-REACTIVE PROTEIN 1.5 mg/dL (0.0-0.9); CALCIUM 8.7 mg/dL (8.5-10.1); CARBON DIOXIDE,CO2 27 mmol/L (21-32); CHLORIDE,CL 103 mmol/L (98-107); CREATININE 0.74 mg/dL (0.55-1.02); EST CRCL DRUG DOSING (CG) 91.12 mL/min; GLUCOSE RANDOM 97 mg/dL (70-99); POTASSIUM,K 3.5 mmol/L (3.5-5.1); PROTEIN TOTAL,TP 8.9 g/dL (6.4-8.2); SODIUM,NA 140 mmol/L (136-145)
[2023-05-02 23:28] LABS: A/G RATIO 0.56; ESTIMATED GFR 111 mL/min (>=60)
[2023-05-02 23:55] LABS: APPEARANCE,URINE SLIGHTLY CLOUDY (CLEAR); BILIRUBIN,URINE NEGATIVE (NEGATIVE); COLOR,URINE YELLOW (YELLOW); GLUCOSE,URINE NEGATIVE (NEGATIVE); KETONES,URINE NEGATIVE (NEGATIVE); LEUKOCYTE ESTERASE,URINE SMALL (NEGATIVE); NITRITE,URINE NEGATIVE (NEGATIVE); OCCULT BLOOD,URINE LARGE (NEGATIVE); PH,URINE 7.5 (5.0-9.0); PROTEIN,URINE 100 (NEGATIVE)
[2023-05-03 00:02] LABS: BACTERIA,URINE FEW /HPF (0-FEW/HPF); EPITHELIAL CELLS,URINE FEW /HPF (NOT SEEN); RBC,URINE 40-50 /HPF (0-5)
[2023-05-03] MEDS ORDERED: Take Home: Ciprofloxacin HCl 500 MG, 6 Tab Pack PO ONE (00:09)
== END 2023-05-03 00:29 | disposition home or self-care (01) ==
LOC: DL.ED 21:52
DX: N30.01 Acute cystitis with hematuria (principal); F17.210 Nicotine dependence, cigarettes, uncomplicated
CPT/HCPCS: 36415; 80053; 81001; 83605; 84703; 85025; 86140; 87086; 87088; 87186; 99283; 99284; A9270-GY

== ENCOUNTER 2023-06-30 17:31 | Emergency (ER) | payer MEDICAID ==
[2023-06-30 17:53] VITALS: BP 119/85; PULSE 118
[2023-06-30] MEDS ORDERED: Sodium Chloride 0.9% 10 ML Syringe FLUSH PRN (17:56)
[2023-06-30] MEDS ORDERED: Acetaminophen 500 MG Tab PO ONE (17:59)
[2023-06-30 18:07] LABS: BASOPHILS PERCENT AUTO 0.2 % (0.0-1.0); EOSINOPHILS PERCENT AUTO 0.1 % (1.0-3.0); HEMATOCRIT 30.4 % (37.0-47.0); HEMOGLOBIN 8.9 g/dL (12.0-16.0); LYMPHOCYTES PERCENT AUTO 9.3 % (20.5-50.1); MEAN CORPUSCULAR HEMOGLOBIN 17.1 pg (27.0-34.0); MEAN CORPUSCULAR HGB CONC 29.3 g/dL (33.0-35.0); MEAN CORPUSCULAR VOLUME 58.6 fL (80-100); MONOCYTES PERCENT AUTO 11.4 % (2-8); PLATELET COUNT,PLT 288 10^3/uL (150-450); RED BLOOD CELL COUNT 5.19 10^6/uL (4.2-5.4); WHITE BLOOD CELL COUNT,WBC 10.3 10^3/uL (5.0-10.0)
[2023-06-30 18:22] LABS: C-REACTIVE PROTEIN 16.13 ng/dL (<=0.30)
[2023-06-30 18:27] LABS: ALANINE AMINOTRANSFERASE,ALT 43 U/L (14-59); ALBUMIN 3.1 g/dL (3.4-5.0); ALKALINE PHOSPHATASE 127 U/L (46-116); ANION GAP 13.8 mEq/L (7-13); ASPARTATE AMNIOTRANSFERASE,AST 32 U/L (15-37); BILIRUBIN TOTAL 0.5 mg/dL (0.2-1.0); BLOOD UREA NITROGEN,BUN 8 mg/dL (7-18); CALCIUM 9.2 mg/dL (8.5-10.1); CARBON DIOXIDE,CO2 25 mmol/L (21-32); CHLORIDE,CL 98 mmol/L (98-107); CREATININE 0.73 mg/dL (0.55-1.02); EST CRCL DRUG DOSING (CG) 92.37 mL/min; GLUCOSE RANDOM 121 mg/dL (70-99); MAGNESIUM 1.8 mg/dL (1.8-2.4); POTASSIUM,K 3.8 mmol/L (3.5-5.1); PROTEIN TOTAL,TP 9.5 g/dL (6.4-8.2); SODIUM,NA 133 mmol/L (136-145)
[2023-06-30 18:28] LABS: A/G RATIO 0.48; ESTIMATED GFR 113 mL/min (>=60); ETHANOL BLOOD MEDICAL < 3 mg/dL (0)
[2023-06-30] MEDS ORDERED: Lactated Ringers 1,000 ML IV ONE (18:54)
[2023-06-30 19:23] LABS: APPEARANCE,URINE SLIGHTLY CLOUDY (CLEAR); BILIRUBIN,URINE NEGATIVE (NEGATIVE); COLOR,URINE YELLOW (YELLOW); GLUCOSE,URINE NEGATIVE (NEGATIVE); KETONES,URINE NEGATIVE (NEGATIVE); LEUKOCYTE ESTERASE,URINE SMALL (NEGATIVE); NITRITE,URINE NEGATIVE (NEGATIVE); OCCULT BLOOD,URINE TRACE-INTACT (NEGATIVE); PH,URINE 6.5 (5.0-9.0); PROTEIN,URINE 100 (NEGATIVE)
[2023-06-30 19:25] LABS: AMPHETAMINES,URINE NEGATIVE (NEGATIVE); BARBITURATES,URINE NEGATIVE (NEGATIVE); BENZODIAZEPINE,URINE NEGATIVE (NEGATIVE); MDMA (ECSTASY), URINE NEGATIVE (NEGATIVE); METHADONE,URINE NEGATIVE (NEGATIVE); METHAMPHETAMINES,URINE NEGATIVE (NEGATIVE); OPIATES,URINE NEGATIVE (NEGATIVE); OXYCODONE,URINE NEGATIVE (NEGATIVE); PHENCYCLIDINE,URINE NEGATIVE (NEGATIVE); TCA,URINE NEGATIVE (NEGATIVE)
[2023-06-30 19:27] LABS: LACTIC ACID 1.6 mmol/L (0.4-2.0)
[2023-06-30 19:46] LABS: WBC,URINE 50-75 /HPF (0-5/HPF)
[2023-06-30 19:47] LABS: BACTERIA,URINE MODERATE /HPF (0-FEW/HPF); EPITHELIAL CELLS,URINE MODERATE /HPF (NOT SEEN); MUCUS,URINE MANY /LPF (NOT SEEN)
[2023-06-30] MEDS ORDERED: Ciprofloxacin 500 MG Tab PO ONE (20:08)
== END 2023-06-30 20:29 | disposition home or self-care (01) ==
LOC: DL.ED 17:31
DX: N30.00 Acute cystitis without hematuria (principal)
CPT/HCPCS: 36415; 80053; 80305-QW; 80307; 81001; 83605; 83690; 83735; 85025; 86140; 87040; 87086; 87088; 87186; 96360; 99283; 99284-25; A9270-GY; J3490; J7120

== ENCOUNTER 2025-06-03 22:01 | Emergency (ER) | payer MEDICAID ==
[2025-06-03] MEDS ORDERED: Sodium Chloride 0.9% 10 ML Syringe FLUSH PRN (22:29)
[2025-06-03] MEDS: Iopamidol 612 MG/ML 100 ML Bottle IVPUSH ONE (22:29)
[2025-06-03 22:39] LABS: BASOPHILS PERCENT AUTO 0.6 % (0.0-1.0); EOSINOPHILS PERCENT AUTO 0.7 % (1.0-3.0); LYMPHOCYTES PERCENT AUTO 32.2 % (20.5-50.1); MONOCYTES PERCENT AUTO 7.9 % (2-8); NEUTROPHILS PERCENT AUTO 58.6 % (42.2-75.2); PLATELET COUNT,PLT 330 10^3/uL (150-450); RED BLOOD CELL COUNT 5.06 10^6/uL (4.2-5.4); WHITE BLOOD CELL COUNT,WBC 8.8 10^3/uL (5.0-10.0)
[2025-06-03 22:50] LABS: INR 0.9 (0.9-1.2); PTT,PARTIAL THROMBOPLSTIN TIME 22.3 SEC (22.0-34.0)
[2025-06-03 22:57] LABS: A/G RATIO 0.7; ALANINE AMINOTRANSFERASE,ALT 72 U/L (14-59); ASPARTATE AMNIOTRANSFERASE,AST 28 U/L (15-37); BILIRUBIN TOTAL 0.1 mg/dL (0.2-1.0); BLOOD UREA NITROGEN,BUN 11 mg/dL (7-18); CARBON DIOXIDE,CO2 27 mmol/L (21-32); CHLORIDE,CL 108 mmol/L (98-107); CREATININE 0.92 mg/dL (0.55-1.02); ETHANOL BLOOD MEDICAL 234 mg/dL (0); GLUCOSE RANDOM 113 mg/dL (70-99); POTASSIUM,K 3.6 mmol/L (3.5-5.1); PROTEIN TOTAL,TP 8.9 g/dL (6.4-8.2); SODIUM,NA 144 mmol/L (136-145)
[2025-06-03 22:58] LABS: ESTIMATED GFR 84 mL/min (>=60)
[2025-06-03] MEDS: Ketamine 500 mg/10 ML MDV IV ONE (23:54)
[2025-06-04] MEDS: Amoxicillin/Clavulanate K 875-125 MG Tab PO ONE (00:23)
[2025-06-04 01:59] LABS: AMPHETAMINES,URINE NEGATIVE (NEGATIVE); BARBITURATES,URINE NEGATIVE (NEGATIVE); MDMA (ECSTASY), URINE NEGATIVE (NEGATIVE); METHAMPHETAMINES,URINE NEGATIVE (NEGATIVE); OPIATES,URINE NEGATIVE (NEGATIVE); OXYCODONE,URINE NEGATIVE (NEGATIVE); PHENCYCLIDINE,URINE NEGATIVE (NEGATIVE); TCA,URINE NEGATIVE (NEGATIVE)
== END 2025-06-04 02:47 | disposition home or self-care (01) ==
LOC: DL.ED 22:01
DX: S02.2XXA Fracture of nasal bones, initial encounter for closed fracture (principal); S52.611A Displaced fracture of right ulna styloid process, initial encounter for closed fracture; S52.501A Unspecified fracture of the lower end of right radius, initial encounter for closed fracture; F10.120 Alcohol abuse with intoxication, uncomplicated; V00.831A Fall from motorized mobility scooter, initial encounter; Y93.89 Activity, other specified; Y90.9 Presence of alcohol in blood, level not specified
CPT/HCPCS: 25605; 36415; 70450; 70486; 71045; 71260; 72125; 73090; 73100; 74177; 80053; 80305; 80307; 81025; 85025; 85610; 85730; 99285; A9270; J3490; Q9967